=== PATIENT | female | born 1975 | race Caucasian/White ===

== ENCOUNTER 2016-09-06 19:32 | Emergency (ER) | payer OTHER ==
[~2016-09-06] VITALS: Ht 172.7 cm; Wt 92.0 kg
[~2016-09-06 19:32] MED LIST: DIAZ5TAB4 PO; MECL25TA2 PO; ONDA4TAB35 PO; PRENATAL VITS
[2016-09-06 19:55] VITALS: Ht 172.7 cm; Wt 92.0 kg
[2016-09-06] MEDS ORDERED: ACETAMINOPHEN 500 MG TAB PO STA (22:04)
[2016-09-06] MEDS ORDERED: AMO500 PO (22:07)
[2016-09-06] MEDS ORDERED: ACET500C5 PO (22:08)
--- NOTE | 2016-09-06 22:17 | ERD ---
ER Documentation Chief Complaint Date/Time DATE: 09/06/16 TIME: 22:08 Chief Complaint SORE THROAT SINCE TUESDAY. BOTH KIDS WITH STREP LAST WEEK HPI Patient is a 41-year-old female who presents to the emergency department with a sore throat 4 days. Patient states that her throat appears erythematous and she is having dysphagia. Patient is able to tolerate by mouth fluids. She has no muffled voice, no trismus, no drooling and is speaking in full sentences. Patient reports of fever which started yesterday. She reports a T max of 101.2F this morning around 8 AM. She took ibuprofen 800 mg and hydrocodone at that time. Patient denies any nausea, vomiting, abdominal pain, diarrhea, ear pain, cough. She does report some malodorous urine 2 days. Patient denies any frequency, urgency. Patient denies any recent travel. Patient's son was diagnosed with strep throat last week. ROS All systems reviewed and are negative except as per history of present illness. Medications Home Meds Active Scripts Acetaminophen* (Tylophen*) 500 Mg Capsule, 1 CAP PO Q6H Y for PAIN AND OR ELEVATED TEMP, #20 CAP Prov:NYA FRANCOIS PA-C 09/06/16 Amoxicillin* (Amoxicillin*) 500 Mg Cap, 500 MG PO BID for 10 Days, CAP Prov:NYA FRANCOIS PA-C 09/06/16 Ondansetron Hcl* (Zofran* ODT) 4 mg -ODT Tab.disper, 4 MG PO Q8 Y for NAUSEA AND OR VOMITING, #30 TAB Prov:MARISSA CARREON NP 09/17/15 Diazepam* (Diazepam*) 5 Mg Tablet, 5 MG PO Q8 Y for dizziness vertigo symptoms, #10 TAB Prov:MARISSA CARREON TRANSFER SPECIALIST 09/17/15 Reported Medications Ondansetron Hcl* (Zofran* ODT) Unknown Strength Tab.disper, PO Q6 Y for NAUSEA AND/OR VOMITING, #10 TAB 09/17/15 Meclizine Hcl* (Antivert*) Unknown Strength Tablet, PO Q6H for DIZZINESS, #20 TAB 09/17/15 [ Vits] No Conflict Check 09/07/12 Allergies Allergies: Coded Allergies: morphine (Verified Allergy, Mild, ITCHING, 09/14/13) PMhx/Soc Medical and Surgical Hx: pt denies Medical Hx History of Surgery: Yes (C section x3, and gall bladder removal) Anesthesia Reaction: No Hx Neurological Disorder: No Hx Respiratory Disorders: No Hx Cardiac Disorders: No Hx Psychiatric Problems: No Hx Miscellaneous Medical Probl: No Hx Alcohol Use: Yes Hx Substance Use: No Hx Tobacco Use: Yes Smoking Status: Current every day smoker Physical Exam Vitals Vital Signs Date Time Temp Pulse Resp B/P Pulse Ox O2 Delivery O2 Flow Rate FiO2 09/06/16 23:16 100.3 88 20 132/67 98 Room Air 09/06/16 19:55 100.6 97 18 166/80 100 Physical Exam GENERAL: Well-developed, well-nourished female. Appears in no acute distress. Speaking in full sentences without any difficulty. HEAD: Normocephalic, atraumatic. No deformities or ecchymosis. EYE: Pupils equal, round, and reactive to light. EOMs intact. No conjunctival erythema. No scleral icterus. No eye discharge. ENT: External ear without any masses or tenderness. Auditory canals clear bilaterally. TM visualized bilaterally, non-erythematous, non-bulging. Nasal mucosa pink with no discharge. Oropharynx is erythematous with tonsillar swelling bilaterally. Left tonsil with exudates. No uvula deviation. No kissing tonsils. No mastoid tenderness bilateral. NECK: Supple. No lymphadenopathy or thyromegaly. No meningismus. Trachea midline. LUNG: Clear to auscultation bilaterally. No rhonchi, wheezing, rales or coarse breath sounds. HEART: Regular rate and rhythm. No murmurs, rubs or gallops. ABDOMEN: Soft, nondistended. Tender to palpation in the suprapubic region. Positive bowel sounds in all four quadrants. No rebound tenderness, no guarding. (-) McBurney's point tenderness. No CVA tenderness. BACK: No midline tenderness. EXTREMITIES: Equal pulses bilaterally. No peripheral clubbing, cyanosis or edema. No unilateral leg swelling. NEUROLOGIC: Alert and oriented to person, place and time. Moving all four extremities. 5/5 strength in all extremities. Normal speech. Steady gait. (-) Brudzinski sign- no flexion of the hips and knees noted with neck flexion. (-) Kernigs sign- patient able to extend knee to 180 degrees with hip flexion, no hamstring stiffness noted. SKIN: Normal color. Warm and dry. No rashes or lesions. Results 24 hrs Laboratory Tests Test 09/06/16 22:56 Bedside Urine Blood Trace-intact Bedside Urine Glucose (UA) Negative Bedside Urine Ketones (LAB) Negative Bedside Urine Leukocyte Esterase (L Negative Bedside Urine Nitrite (LAB) Negative Bedside Urine Protein (LAB) Negative Bedside Urine pH (LAB) 7.5 Current Medications Medications (Trade) Dose Ordered Sig/Carl Route PRN Reason Start Time Stop Time Status Last Admin Dose Admin Acetaminophen (Tylenol Tab) 1,000 mg ONCE STAT PO 09/06/16 22:04 09/06/16 22:51 DC Procedures/MDM ED COURSE: The patient was stable throughout ED course. I kept the patient and/or family informed of laboratory and diagnostic imaging results throughout the ED course. MEDICAL DECISION MAKING: This is a 41-year-old female who presents with throat pain and fevers. Vital signs were reviewed. Patient had a temperature of 100.6F at initial presentation. Patient was offered Tylenol here in the emergency department for her fever but the patient refused stating that she can take the medication at home. Patient was not hypoxic. The patient does not have trismus, muffled voice , uvula deviation, unilateral tonsillar swelling, or drooling. No signs of neck swelling or hyperextension of the neck noted. ENT exam revealed erythematous oropharynx with bilateral tonsillar erythema and swelling, left tonsil noted to have exudates. Given these findings, the patients presentation is most consistent with strep pharyngitis. I have a much lower clinical suspicion for epiglottitis, peritonsillar abscess, retropharyngeal abscess, Ludwigs angina, acute bronchitis, dental abscess, influenza or pneumonia. Urine dip was negative for infection or hematuria. Low suspicion for UTI or pyelonephritis. PRESCRIPTIONS: Amoxicillin. Patient advised to take full course of antibiotics. Tylenol for pain/fever. DISCHARGE: At this time, patient is stable for discharge and outpatient management. Supportive therapies such as OTC throat lozenges and warm salt water gurgles were discussed. I have instructed the patient to follow-up with his/her primary care physician in 1-2 days. I have discussed with the patient the possibility of needing to see a specialist for further workup and imaging studies if symptoms persist. I have instructed the patient to promptly return to the ER for any new or worsening symptoms including increased pain, fever, nausea, vomiting, weakness or LOC. The patient and/or family expressed understanding of and agreement with this plan. All questions were answered. Home care instructions were provided. Departure Diagnosis: Primary Impression: Strep throat Condition: Stable Patient Instructions: Pharyngitis, Strep (Presumed) Additional Instructions: They have access prescribed. Drink lots of fluids. Take Tylenol for fever/pain control. Call your primary care doctor TOMORROW for an appointment during the next 1-2 days.See the doctor sooner or return here if your condition worsens before your appointment time. NYA FRANCOIS PA-C Sep 06, 2016 22:16
[2016-09-06 22:56] LABS: URINE BLOOD (Dip) POC Trace-intact (NEGATIVE)
[2016-09-06 23:16] VITALS: BP 132/67; PULSE 88; RESP 20; TEMP 100.3
== END 2016-09-06 23:23 | disposition home or self-care (01) ==
LOC: FTE 19:32
DX: J02.0 Streptococcal pharyngitis (principal); F17.210 Nicotine dependence, cigarettes, uncomplicated
CPT/HCPCS: 81003; Z7502; Z7610; 99283

== ENCOUNTER 2016-12-08 13:40 | Emergency (ER) | payer OTHER ==
[~2016-12-08] VITALS: Wt 88.6 kg
[~2016-12-08 13:40] MED LIST changes: +ACET500C5 PO; +AMO500 PO
[2016-12-08] MEDS ORDERED: KETOROLAC 30 MG INJ IM STA (13:56)
--- NOTE | 2016-12-08 14:52 | ERD ---
ER Documentation Chief Complaint Date/Time DATE: 12/08/16 TIME: 14:48 Chief Complaint l. elbow pain s/p fall HPI Patient is a 41-year-old female who presents to the ED with left elbow pain after sustaining a fall 1 week ago. She states that she has pain to the tip of her elbow. She states that it was swollen but the swelling has decreased. She has been using ice. She is able to move her her elbow and shoulder but she states that it is tender to touch when she hits her elbow or places her elbow on a hard surface. Denies numbness or tingling. Denies pain above or below her elbow joint. Denies fever or chills. She states that she took half a tablet of hydrocodone which helped with her symptoms. Up-to-date with her immunizations no other complaints. ROS All systems reviewed and are negative except as per history of present illness. Medications Home Meds Active Scripts Naproxen* (Naprosyn*) 500 Mg Tablet, 500 MG PO BID Y for PAIN AND/OR INFLAMMATION, #30 TAB Prov:SONY JOHNSON PA-C 12/08/16 Acetaminophen* (Tylophen*) 500 Mg Capsule, 1 CAP PO Q6H Y for PAIN AND OR ELEVATED TEMP, #20 CAP Prov:NYA FRANCOIS PA-C 09/06/16 Amoxicillin* (Amoxicillin*) 500 Mg Cap, 500 MG PO BID for 10 Days, CAP Prov:NYA FRANCOIS PA-C 09/06/16 Ondansetron Hcl* (Zofran* ODT) 4 mg -ODT Tab.disper, 4 MG PO Q8 Y for NAUSEA AND OR VOMITING, #30 TAB Prov:MARISSA CARREON MECHANICAL APPLICATIONS ENGINEER 09/17/15 Diazepam* (Diazepam*) 5 Mg Tablet, 5 MG PO Q8 Y for dizziness vertigo symptoms, #10 TAB Prov:MARISSA CARREON MECHANICAL APPLICATIONS ENGINEER 09/17/15 Reported Medications Ondansetron Hcl* (Zofran* ODT) Unknown Strength Tab.disper, PO Q6 Y for NAUSEA AND/OR VOMITING, #10 TAB 09/17/15 Meclizine Hcl* (Antivert*) Unknown Strength Tablet, PO Q6H for DIZZINESS, #20 TAB 09/17/15 [ Vits] No Conflict Check 09/07/12 Allergies Allergies: Coded Allergies: morphine (Verified Allergy, Mild, ITCHING, 09/14/13) PMhx/Soc History of Surgery: Yes (C section x3, and gall bladder removal) Anesthesia Reaction: No Hx Neurological Disorder: No Hx Respiratory Disorders: No Hx Cardiac Disorders: No Hx Psychiatric Problems: No Hx Miscellaneous Medical Probl: No Hx Alcohol Use: Yes Hx Substance Use: No Hx Tobacco Use: Yes Smoking Status: Never smoker FmHx Family History: No coronary disease, No diabetes, No other Physical Exam Vitals Vital Signs Date Time Temp Pulse Resp B/P Pulse Ox O2 Delivery O2 Flow Rate FiO2 12/08/16 13:42 98.7 82 20 131/76 100 Physical Exam GENERAL: Well-developed, well-nourished female. Appears in no acute distress. LUNG: Clear to auscultation bilaterally. No rhonchi, wheezing, rales or coarse breath sounds. HEART: Regular rate and rhythm. No murmurs, rubs or gallops. ABDOMEN: No scars, ecchymosis or rashes noted. Soft, nontender, and nondistended. Positive bowel sounds in all four quadrants. No rebound tenderness , no guarding. (-) McBurneys point tenderness. No CVA tenderness. BACK: No midline tenderness. Extremities: Equal pulses bilaterally. No peripheral clubbing, cyanosis or edema. No unilateral leg swelling. No step-offs or deformities. No open wounds or lacerations. Tenderness to the olecranon. No bruising or ecchymosis or redness or warmth. No pain above or below the elbow joint. No snuffbox tenderness. Range of motion intact. Pulses intact. Radius, ulnar and median nerve intact. NEUROLOGIC: Alert and oriented. Moving all four extremities. 5/5 strength in all extremities. Normal speech. Steady gait. SKIN: Normal color. Warm and dry. No rashes or lesions. Capillary refill < 2 seconds Results 24 hrs Current Medications Medications (Trade) Dose Ordered Sig/Carl Route PRN Reason Start Time Stop Time Status Last Admin Dose Admin Ketorolac Tromethamine (Toradol) 30 mg ONCE STAT IM 12/08/16 13:56 12/08/16 13:58 DC 12/08/16 14:10 Procedures/MDM ER COURSE: I kept the patient and/or family informed of laboratory and diagnostic imaging results throughout the emergency room course. MEDICATIONS Toradol. Tolerated well with no adverse reaction. IMAGING STUDIES [place] [address] Radiology Main Line: [phone] DIAGNOSTIC IMAGING REPORT Patient: BRAULIO PACHECO : 1975 Age: 41 Sex: F MR #: [id number] DOS: 12/08/16 1356 Ordering MD: SONY JOHNSON PA-C Location: [facility] Room/Bed: PROCEDURE: XR left elbow. CLINICAL INDICATION: Trauma due to a fall. Left elbow pain. TECHNIQUE: 3 views. Frontal, lateral, and oblique. COMPARISON: No prior study is available for comparison. FINDINGS: There is no fracture or dislocation. The soft tissues are normal. Articular surfaces are intact. There is no lytic or blastic lesion. There is no radiopaque foreign body. IMPRESSION: 1. Unremarkable images of the left elbow. RPTAT: QQ .Tyrone Che MD, MD Date Time Electronically viewed and signed by .Tyrone Che MD, MD on 12/08/2016 15:15 .R/ CC: SONY JOHNSON PA-C MEDICAL DECISION MAKING: This is a 41-year-old female who presents with left elbow pain 1 week. Vital signs were reviewed. Patient is afebrile. Patient is not hypoxic. Patient is not toxic or ill-appearing. Patient has elbow pain of unknown etiology likely contusion. Low suspicion for dislocation, fracture, septic joint, compartment syndrome, osteomyelitis, cellulitis, avascular necrosis, neurological injury, vascular injury, tendon laceration. [Anderson wrap Assessment: Neurovascularly intact post anderson wrap placement with good fit.] Patient's extremity symptoms have stabilized while they have been evaluated in the department and are appropriate for outpatient follow up. DISCHARGE: At this time, patient is stable for discharge and outpatient management with no new complaints during the ER course. Patient was sent home with [facility] for pain and a copy of her imaging results an Anderson wrap. Patient will be discharged home with instructions to recheck for new or worsening symptoms such as fever, nausea, weakness, LOC and to follow up with primary care in the next 1-2 days. Patient was advised to return to the ER for any new or worsening symptoms. Plan was discussed and patient and/or family understands and agrees. Home instructions were given. Departure Diagnosis: Primary Impression: Elbow pain Laterality: left Qualified Code: M25.522 - Left elbow pain Condition: Stable SONY JOHNSON PA-C Dec 08, 2016 14:52
--- NOTE | 2016-12-08 15:16 | RADRPT ---
PROCEDURE: XR left elbow. CLINICAL INDICATION: Trauma due to a fall. Left elbow pain. TECHNIQUE: 3 views. Frontal, lateral, and oblique. COMPARISON: No prior study is available for comparison. FINDINGS: There is no fracture or dislocation. The soft tissues are normal. Articular surfaces are intact. There is no lytic or blastic lesion. There is no radiopaque foreign body. IMPRESSION: 1. Unremarkable images of the left elbow. RPTAT: QQ .Tyrone Che MD, MD Date Time Electronically viewed and signed by .Tyrone Che MD, MD on 12/08/2016 15:15 .R/
[2016-12-08] MEDS ORDERED: NAPR-260 PO (15:20)
== END 2016-12-08 15:35 | disposition home or self-care (01) ==
LOC: FTE 13:40
DX: M25.522 Pain in left elbow (principal); Z04.3 Encounter for examination and observation following other accident
CPT/HCPCS: 73080; J1885; 96372

== ENCOUNTER 2017-06-24 12:43 | Emergency (ER) | payer OTHER ==
[~2017-06-24] VITALS: Wt 82.0 kg
[~2017-06-24 12:43] MED LIST changes: -AMO500 PO; +AMOX500C2 PO; +NAPR-260 PO
--- NOTE | 2017-06-24 13:44 | ERD ---
ER Documentation Chief Complaint Chief Complaint vertigo since 06/18 worse with driving and moving head HPI 41 y/o female with well know and evaluated history of vertigo causing disability status, presents to the ED asking if there is something new or different in the management of vertigo since she feels that the symptoms are slowly getting worse. Her neurologist has her on Diazepam and Meclizine, she doesn't need a refill now. Her studies include MRI's and Vestibular evaluation at [facility]. At this time, the patient denies headache, no fever, no visual changes , no trauma. ROS All systems reviewed and are negative except as per history of present illness. Medications Home Meds Active Scripts Naproxen* (Naprosyn*) 500 Mg Tablet, 500 MG PO BID Y for PAIN AND/OR INFLAMMATION, #30 TAB Prov:SONY JOHNSONC 12/08/16 Acetaminophen* (Tylophen*) 500 Mg Capsule, 1 CAP PO Q6H Y for PAIN AND OR ELEVATED TEMP, #20 CAP Prov:NYA FRANCOIS PA-C 09/06/16 Amoxicillin* (Amoxicillin*) 500 Mg Cap, 500 MG PO BID for 10 Days, CAP Prov:NYA FRANCOISC 09/06/16 Ondansetron Hcl* (Zofran* ODT) 4 mg -ODT Tab.disper, 4 MG PO Q8 Y for NAUSEA AND OR VOMITING, #30 TAB Prov:MARISSA CARREON LIFE SKILLS COACH 09/17/15 Diazepam* (Diazepam*) 5 Mg Tablet, 5 MG PO Q8 Y for dizziness vertigo symptoms, #10 TAB Prov:MARISSA CARREON LIFE SKILLS COACH 09/17/15 Reported Medications Ondansetron Hcl* (Zofran* ODT) Unknown Strength Tab.disper, PO Q6 Y for NAUSEA AND/OR VOMITING, #10 TAB 09/17/15 Meclizine Hcl* (Antivert*) Unknown Strength Tablet, PO Q6H for DIZZINESS, #20 TAB 09/17/15 [ Vits] No Conflict Check 09/07/12 Allergies Allergies: Coded Allergies: morphine (Verified Allergy, Mild, ITCHING, 09/14/13) PMhx/Soc History of Surgery: Yes (C section x3, and gall bladder removal) Anesthesia Reaction: No Hx Neurological Disorder: No Hx Respiratory Disorders: No Hx Cardiac Disorders: No Hx Psychiatric Problems: No Hx Miscellaneous Medical Probl: No Hx Alcohol Use: Yes (occas) Hx Substance Use: No Hx Tobacco Use: Yes Smoking Status: Current every day smoker Physical Exam Vitals Vital Signs Date Time Temp Pulse Resp B/P Pulse Ox O2 Delivery O2 Flow Rate FiO2 06/24/17 14:00 67 15 126/74 99 Room Air 06/24/17 12:45 99.0 92 20 128/80 99 Physical Exam Const: Alert, oriented in no distress Head: Atraumatic Eyes: Normal Conjunctiva ENT: Normal External Ears, Nose and Mouth. Neck: Full range of motion..~ No meningismus. Resp: Clear to auscultation bilaterally Cardio: Regular rate and rhythm, no murmurs Abd: Soft, non tender, non distended. Normal bowel sounds Skin: No petechiae or rashes Back: No midline or flank tenderness Ext: No cyanosis, or edema Neur: Awake and alert Psych: Normal Mood and Affect Procedures/MDM 41 y/o female with long history of vertigo causing disability, presents c/o slow progression of her symptoms, and is inquiring about new treatment. Physical exam and vital signs unremarkable. I recommend to continue management and follow up with her neurologist. Patient agrees with expectant management at this time and thanks us for revising her case. Departure Diagnosis: Primary Impression: Benign positional vertigo Additional Impression: Postural dizziness Condition: Stable Additional Instructions: Thank you very much for allowing us to participate in your care. It was a pleasure seen you today here at [facility] [place]. Please continue taking your medication for chronic vertigo: Valium and meclizine. Please do not drive while you are taking these medications and follow-up with primary care provider. If illness has not improved in 2 days, then make an appointment with primary care provider, if the provider is unavailable, return to the Emergency Department immediately. YAIMA PUTNAM MD Jun 24, 2017 13:44
--- NOTE | 2017-06-24 13:44 | ERD ---
ER Documentation Chief Complaint Chief Complaint vertigo since 06/18 worse with driving and moving head HPI 41 y/o female with well know and evaluated history of vertigo causing disability status, presents to the ED asking if there is something new or different in the management of vertigo since she feels that the symptoms are slowly getting worse. Her neurologist has her on Diazepam and Meclizine, she doesn't need a refill now. Her studies include MRI's and Vestibular evaluation at [facility]. At this time, the patient denies headache, no fever, no visual changes , no trauma. ROS All systems reviewed and are negative except as per history of present illness. Medications Home Meds Active Scripts Naproxen* (Naprosyn*) 500 Mg Tablet, 500 MG PO BID Y for PAIN AND/OR INFLAMMATION, #30 TAB Prov:SONY JOHNSONC 12/08/16 Acetaminophen* (Tylophen*) 500 Mg Capsule, 1 CAP PO Q6H Y for PAIN AND OR ELEVATED TEMP, #20 CAP Prov:NYA FRANCOIS PA-C 09/06/16 Amoxicillin* (Amoxicillin*) 500 Mg Cap, 500 MG PO BID for 10 Days, CAP Prov:NYA FRANCOISC 09/06/16 Ondansetron Hcl* (Zofran* ODT) 4 mg -ODT Tab.disper, 4 MG PO Q8 Y for NAUSEA AND OR VOMITING, #30 TAB Prov:MARISSA CARREON DISHWASHER 09/17/15 Diazepam* (Diazepam*) 5 Mg Tablet, 5 MG PO Q8 Y for dizziness vertigo symptoms, #10 TAB Prov:MARISSA CARREON DISHWASHER 09/17/15 Reported Medications Ondansetron Hcl* (Zofran* ODT) Unknown Strength Tab.disper, PO Q6 Y for NAUSEA AND/OR VOMITING, #10 TAB 09/17/15 Meclizine Hcl* (Antivert*) Unknown Strength Tablet, PO Q6H for DIZZINESS, #20 TAB 09/17/15 [ Vits] No Conflict Check 09/07/12 Allergies Allergies: Coded Allergies: morphine (Verified Allergy, Mild, ITCHING, 09/14/13) PMhx/Soc History of Surgery: Yes (C section x3, and gall bladder removal) Anesthesia Reaction: No Hx Neurological Disorder: No Hx Respiratory Disorders: No Hx Cardiac Disorders: No Hx Psychiatric Problems: No Hx Miscellaneous Medical Probl: No Hx Alcohol Use: Yes (occas) Hx Substance Use: No Hx Tobacco Use: Yes Smoking Status: Current every day smoker Physical Exam Vitals Vital Signs Date Time Temp Pulse Resp B/P Pulse Ox O2 Delivery O2 Flow Rate FiO2 06/24/17 14:00 67 15 126/74 99 Room Air 06/24/17 12:45 99.0 92 20 128/80 99 Physical Exam Const: Alert, oriented in no distress Head: Atraumatic Eyes: Normal Conjunctiva ENT: Normal External Ears, Nose and Mouth. Neck: Full range of motion..~ No meningismus. Resp: Clear to auscultation bilaterally Cardio: Regular rate and rhythm, no murmurs Abd: Soft, non tender, non distended. Normal bowel sounds Skin: No petechiae or rashes Back: No midline or flank tenderness Ext: No cyanosis, or edema Neur: Awake and alert Psych: Normal Mood and Affect Procedures/MDM 41 y/o female with long history of vertigo causing disability, presents c/o slow progression of her symptoms, and is inquiring about new treatment. Physical exam and vital signs unremarkable. I recommend to continue management and follow up with her neurologist. Patient agrees with expectant management at this time and thanks us for revising her case. Departure Diagnosis: Primary Impression: Benign positional vertigo Additional Impression: Postural dizziness Condition: Stable Additional Instructions: Thank you very much for allowing us to participate in your care. It was a pleasure seen you today here at [facility]. Please continue taking your medication for chronic vertigo: Valium and meclizine. Please do not drive while you are taking these medications and follow-up with primary care provider. If illness has not improved in 2 days, then make an appointment with primary care provider, if the provider is unavailable, return to the Emergency Department immediately. YAIMA PUTNAM MD Jun 24, 2017 13:44
[2017-06-24 14:00] VITALS: BP 126/74; PULSE 67; RESP 15
== END 2017-06-24 14:00 | disposition home or self-care (01) ==
LOC: FTE 12:43
DX: H81.10 Benign paroxysmal vertigo, unspecified ear (principal); F17.210 Nicotine dependence, cigarettes, uncomplicated
CPT/HCPCS: 99282

== ENCOUNTER 2017-12-05 00:43 | Emergency (ER) | END 2017-12-05 03:26 | disposition home or self-care (01) ==

== ENCOUNTER 2018-12-09 16:47 | Emergency (ER) | payer OTHER ==
[~2018-12-09] VITALS: Ht 170.2 cm; Wt 83.1 kg
[~2018-12-09 16:47] MED LIST changes: +HYDR-4011 PO; +IBUP800T48 PO; -NAPR-260 PO; +NAPR-985 PO; +ONDA4TAB14 PO
[2018-12-09 16:56] VITALS: Ht 170.2 cm; Wt 83.1 kg
[2018-12-09] MEDS ORDERED: KETOROLAC 30 MG INJ IV STA (18:21)
[2018-12-09] MEDS ORDERED: SOD CHLORIDE 0.9% 1,000 ML IV STA (18:21)
[2018-12-09] MEDS ORDERED: HYDROmorphONE 0.5 MG/0.5 ML SYG IV STA (19:12)
[2018-12-09] MEDS ORDERED: FAMO-96 PO (20:02)
--- NOTE | 2018-12-09 20:10 | ERD ---
ER Documentation Chief Complaint Chief Complaint MID EPIGASTRIC PAIN HX OF BILIARY STENT AND GALLBLADDER REMOVAL HPI This is a 43 female past medical history of cholecystectomy and biliary stent presents to the ED complaining of midepigastric abdominal pain. Patient states pain is sudden onset, occurred 5 hours prior to arrival. Pain radiates to her back and associated with mild distention. Patient also reports waxing and elisabeth ng substernal chest pain. She denies any associated shortness of breath, palpitations, diaphoresis, numbness, tingling, focal weakness. She has been taking ibuprofen, Pepcid, Tums without any relief of her symptoms. Patient states she has had this pain intermittently over the past several years however today's pain is worse. ROS All systems reviewed and are negative except as per history of present illness. Medications Home Meds Active Scripts Docusate Sodium* (Colace*) 100 Mg Capsule, 100 MG PO TID, #30 CAP Prov:MAMADOUIGRCHARMAINE ASIF-C 12/09/18 Hydrocodone/Acetaminophen ([place] 5-325 Tablet) 1 Each Tablet, 1 TAB PO Q6H PRN for PAIN, #7 TAB Prov:MAMADOUIGRCHARMAINE ASIF-C 12/09/18 Famotidine* (Pepcid*) 20 Mg Tablet, 20 MG PO BID for 4 Days, TAB Prov:CHARMAINE REID-C 12/09/18 Hydrocodone/Acetaminophen ([place] 5-325 Tablet) 1 Each Tablet, 1 TAB PO Q6H PRN for PAIN, #15 TAB Prov:TUNG DILLON PA-C 12/05/17 Ondansetron (Ondansetron Odt) 4 Mg Tab.rapdis, 4 MG PO Q6H PRN for NAUSEA AND/OR VOMITING, #20 TAB Prov:TUNG DILLON PA-C 12/05/17 Ibuprofen* (Motrin*) 800 Mg Tab, 800 MG PO Q6, #30 TAB Prov:TUNG DILLON PA-C 12/05/17 Naproxen* (Naprosyn*) 500 Mg Tablet, 500 MG PO BID PRN for PAIN AND/OR INFLAMMATION, #30 TAB Prov:SONY JOHNSON PA-C 12/08/16 Acetaminophen* (Tylophen*) 500 Mg Capsule, 1 CAP PO Q6H PRN for PAIN AND OR ELEVATED TEMP, #20 CAP Prov:MARIA GUADALUPE FRANCOISJENNIFER WALLIS 09/06/16 Amoxicillin* (Amoxicillin*) 500 Mg Cap, 500 MG PO BID for 10 Days, CAP Prov:PRISCILANYA WALLIS 09/06/16 Ondansetron Hcl* (Zofran* ODT) 4 mg -ODT Tab.disper, 4 MG PO Q8 PRN for NAUSEA AND OR VOMITING, #30 TAB Prov:MARISSA CARREON ARCHITECTURE PROFESSOR 09/17/15 Diazepam* (Diazepam*) 5 Mg Tablet, 5 MG PO Q8 PRN for dizziness vertigo symptoms, #10 TAB Prov:MARISSA CARREON ARCHITECTURE PROFESSOR 09/17/15 Reported Medications Ondansetron Hcl* (Zofran* ODT) Unknown Strength Tab.disper, PO Q6 PRN for NAUSEA AND/OR VOMITING, #10 TAB 09/17/15 Meclizine Hcl* (Antivert*) Unknown Strength Tablet, PO Q6H for DIZZINESS, #20 TAB 09/17/15 [ Vits] No Conflict Check 09/07/12 Allergies Allergies: Coded Allergies: morphine (Verified Allergy, Mild, ITCHING, 09/14/13) PMhx/Soc History of Surgery: Yes (cholecystectomy, c/section) Anesthesia Reaction: No Hx Neurological Disorder: No Hx Respiratory Disorders: No Hx Cardiac Disorders: No Hx Psychiatric Problems: No Hx Miscellaneous Medical Probl: No Hx Alcohol Use: Yes Hx Substance Use: No Hx Tobacco Use: Yes Smoking Status: Current every day smoker Physical Exam Vitals Vital Signs Date Temp Pulse Resp B/P (MAP) Pulse Ox O2 O2 Flow FiO2 Time Delivery Rate 12/09/18 98.6 94 17 150/108 99 16:56 (122) Physical Exam Const: + Moderate distress secondary to pain. Head: Atraumatic Eyes: Normal Conjunctiva ENT: Normal External Ears, Nose and Mouth. Neck: Full range of motion. No meningismus. Resp: Clear to auscultation bilaterally Cardio: Regular rate and rhythm, no murmurs Abd: Soft, + midepigastric abdominal tenderness to palpation. Mild distention. No rebound or guarding. Normal bowel sounds Skin: No petechiae or rashes Back: No midline or flank tenderness Ext: No cyanosis, or edema Neur: Awake and alert Psych: Normal Mood and Affect Result Diagram: 12/09/18 1805 12/09/18 180 Results 24 hrs Laboratory Tests Test 12/09/18 18:05 12/09/18 18:34 White Blood Count 6.4 10^3/ul Red Blood Count 4.76 10^6/ul Hemoglobin 12.2 g/dl Hematocrit 38.3 % Mean Corpuscular Volume 80.5 fl Mean Corpuscular Hemoglobin 25.6 pg Mean Corpuscular Hemoglobin Concent 31.9 g/dl Red Cell Distribution Width 14.3 % Platelet Count 215 10^3/UL Mean Platelet Volume 11.0 fl Immature Granulocytes % 0.200 % Neutrophils % 58.9 % Lymphocytes % 27.9 % Monocytes % 8.5 % Eosinophils % 4.2 % Basophils % 0.3 % Nucleated Red Blood Cells % 0.0 /100WBC Immature Granulocytes # 0.010 10^3/ul Neutrophils # 3.8 10^3/ul Lymphocytes # 1.8 10^3/ul Monocytes # 0.5 10^3/ul Eosinophils # 0.3 10^3/ul Basophils # 0.0 10^3/ul Nucleated Red Blood Cells # 0.0 10^3/ul Urine Color YELLOW Urine Clarity CLOUDY Urine pH 7.0 Urine Specific [place] 1.015 Urine Ketones NEGATIVE mg/dL Urine Nitrite NEGATIVE mg/dL Urine Bilirubin NEGATIVE mg/dL Urine Urobilinogen NEGATIVE mg/dL Urine Leukocyte Esterase NEGATIVE Navi/ul Urine Microscopic RBC 0 /HPF Urine Microscopic WBC 0 /HPF Urine Squamous Epithelial Cells FEW /HPF Urine Bacteria FEW /HPF Urine Yeast (Budding) FEW /HPF Urine Hemoglobin NEGATIVE mg/dL Urine Glucose NEGATIVE mg/dL Urine Total Protein NEGATIVE mg/dl Sodium Level 141 mmol/L Potassium Level 4.2 mmol/L Chloride Level 103 mmol/L Carbon Dioxide Level 30 mmol/L Anion Gap 8 Blood Urea Nitrogen 15 mg/dl Creatinine 0.63 mg/dl Est Glomerular Filtrat Rate mL/min > 60 mL/min Glucose Level 89 mg/dl Calcium Level 9.6 mg/dl Total Bilirubin 0.5 mg/dl Direct Bilirubin 0.00 mg/dl Indirect Bilirubin 0.5 mg/dl Aspartate Amino Transf (AST/SGOT) 21 IU/L Alanine Aminotransferase (ALT/SGPT) 18 IU/L Alkaline Phosphatase 64 IU/L Total Protein 7.9 g/dl Albumin 4.5 g/dl Globulin 3.40 g/dl Albumin/Globulin Ratio 1.32 Lipase 77 U/L Beta HCG, Quantitative < 2.4 mIU/ml POC Beta HCG, Qualitative NEGATIVE Current Medications Medications Dose Sig/Carl Start Time Status Last (Trade) Ordered Route PRN Stop Time Admin Dose Reason Admin Sodium 1,000 ml @ Q1H STAT 12/09/18 DC 12/09/18 Chloride 1,000 mls/hr IV 18:21 18:40 12/09/18 19:20 Ketorolac 30 mg ONCE STAT 12/09/18 DC 12/09/18 Tromethamine IV 18:21 18:39 (Toradol) 12/09/18 18:23 0.5 mg ONCE STAT 12/09/18 DC 12/09/18 Hydromorphone IV 19:12 19:15 HCl 12/09/18 19:13 (Dilaudid) Procedures/MDM LABS CBC: no e/o of systemic infection or severe anemia CMP: no e/o severe acidosis, alkalosis, renal failure, diabetic ketoac idosis, liver disease Lipase: The patient's lipase is normal and indicative of no pancreatitis. Urine: no e/o acute infection or hematuria Uhcg: negative 12-lead EKG interpretation as interpeted by Dr. Dumont Normal Sinus Rhythm with ventricular rate of 79 beats per minute Normal axis Normal intervals No acute ST or T wave changes suggestive of acute ischemia or STEMI. DIAGNOSTIC IMAGING: PROCEDURE: US right upper quadrant abdomen. CLINICAL INDICATION: Abdominal pain TECHNIQUE: Multiple real-time images were acquired of the patient's right upper quadrant abdomen utilizing a high resolution transducer. COMPARISON: None FINDINGS: The liver demonstrates normal echogenicity and normal size without focal lesions. Patent portal vein. Gallbladder surgically absent. No intrahepatic or extrahepatic biliary dilatation. The common bile duct measures 4.7 mm in maximal dimension. The visualized portions of the pancreas are normal. The right kidney is normal size with normal echogenicity and morphology. The right kidney measures 11.1 cm. No hydronephrosis or perinephric fluid collections. There are no areas of increased echogenicity to suggest nephrolithiasis. Normal caliber aorta and IVC. No peritoneal free fluid. IMPRESSION: Normal right upper quadrant abdominal ultrasound. ED COURSE: The patient was given IV fluids,Dilaudid, Toradol The medication was well tolerated and the patient had market improvement in symptoms. The patient remained stable throughout ED course. MEDICAL DECISION MAKING: This is a 43-year-old female with history of previous cholecystectomy and biliary stent presents with midepigastric abdominal pain. Differential diagnosis includes appendicitis, diverticulitis nephrolithais and other intra- abdominal medical and surgical concerns. I have reviewed the patients lab studies and imaging as well as multiple examinations of the abdomen. EKG as above is unremarkable. lab workup as above is unremarkable. EKG as above is normal. Lab workup and ultrasound is unremarkable. Her pain was controlled status post IV fluids, Dilaudid, Toradol. She was given copies of her workup here and told to follow up with her PCP for referral to GI specialist. Was given rx trial of Pepcid. Patient also requested stronger pain medications. I consulted [place] [employer] Database Assessment today which shows that patient does not have a history of narcotic abuse. She is given a short Rx of [place] as well as Colace. Strict return cautions discussed. PRESCRIPTIONS: Pepcid, [place], Colace SPECIALIST FOLLOW UP RECOMMENDED: GI specialist Patient has been advised to follow up with primary care in 1-2 days. Blood Pressure Assessment: Patient's blood pressure was elevated (>120/80) but appears stable without evidence of hypertension emergency or urgency. The patient was counseled about the risks of hypertension and urged to pursue outpatient monitoring and therapy within a week with their primary care vanessa ravi. Smoking Cessation Therapy: Pt. was lectured for greater than 3 minutes on the health risks of continued smoking and the benefits of cessation. Departure Diagnosis: Primary Impression: Abdominal pain Abdominal location: epigastric Qualified Codes: R10.13 - Epigastric pain Condition: Stable Patient Instructions: Abdominal Pain Referrals: [facility] YOU HAVE RECEIVED A MEDICAL SCREENING EXAM AND THE RESULTS INDICATE THAT YOU DO NOT HAVE A CONDITION THAT REQUIRES URGENT TREATMENT IN THE EMERGENCY DEPARTMENT. FURTHER EVALUATION AND TREATMENT OF YOUR CONDITION CAN WAIT UNTIL YOU ARE SEEN IN YOUR DOCTORS OFFICE WITHIN THE NEXT 1-2 DAYS. IT IS YOUR RESPONSIBILITY TO MAKE AN APPOINTMENT FOR FOLOW-UP CARE. IF YOU HAVE A PRIMARY DOCTOR --you should call your primary doctor and schedule an appointment IF YOU DO NOT HAVE A PRIMARY DOCTOR YOU CAN CALL OUR PHYSICIAN REFERRAL HOTLINE AT IF YOU CAN NOT AFFORD TO SEE A PHYSICIAN YOU CAN CHOSE FROM THE FOLLOWING COMMUNITY CLINICS [facility] [address] [facility] [address] [facility] [address] [facility] [address] [facility] [address] [facility]. [facility]. [address] [facility]. [facility] YOU HAVE RECEIVED A MEDICAL SCREENING EXAM AND THE RESULTS INDICATE THAT YOU DO NOT HAVE A CONDITION THAT REQUIRES URGENT TREATMENT IN THE EMERGENCY DEPARTMENT. FURTHER EVALUATION AND TREATMENT OF YOUR CONDITION CAN WAIT UNTIL YOU ARE SEEN IN YOUR DOCTORS OFFICE WITHIN THE NEXT 1-2 DAYS. IT IS YOUR RESPONSIBILITY TO MAKE AN APPOINTMENT FOR FOLOW-UP CARE. IF YOU HAVE A PRIMARY DOCTOR --you should call your primary doctor and schedule and appointment IF YOU DO NOT HAVE A PRIMARY DOCTOR YOU CAN CALL OUR PHYSICIAN REFERRAL HOTLINE AT . IF YOU CAN NOT AFFORD TO SEE A PHYSICIAN YOU CAN CHOSE FROM THE FOLLOWING [facility] INSTITUTIONS: [facility] [address] [place] [address] [facility] [address] [place] [address] [facility] [address] [place] [address] [facility] Additional Instructions: Please follow-up with your primary care provider for referral to a GI specialist . The next step would be to get endoscopy. Your labs and imaging here have been normal. Return here for any worsening pain, nausea, vomiting, fevers or any other complaints. CHARMAINE REID PA-C Dec 09, 2018 20:10
[2018-12-09] MEDS ORDERED: HYDR-4011 PO (20:11)
[2018-12-09] MEDS ORDERED: DOCU-144 PO (20:11)
[2018-12-09 20:12] VITALS: BP 147/66; PULSE 71; RESP 18
== END 2018-12-09 20:20 | disposition home or self-care (01) ==
LOC: FTE 16:47
DX: R10.13 Epigastric pain (principal); F17.210 Nicotine dependence, cigarettes, uncomplicated
CPT/HCPCS: 36415; 76705; 80053; 81001; 81025; 83690; 84702; 85025; 93005; 96374; 96375; J1170; J1885; J7030; Z7502